=== PATIENT | female | born 1950 | race Caucasian/White ===

== ENCOUNTER 2020-08-03 11:50 | Emergency (ER) | payer BC, OTHER ==
[~2020-08-03 11:50] MED LIST: Iopamidol-370 76% 500 ML 1 ML ONE
[2020-08-03 12:24] LABS: #Basophils 0.1 thou/uL (0.0-0.2); #Eosinphils 0.2 thou/uL (0.0-0.7); #Lymphocytes 2.4 thou/uL (1.20-3.40); #Monocytes 0.6 thou/uL (0.11-0.59); #Neutrophils 4.8 thou/uL (1.40-6.50); %Basophils 1.5 % (0.0-1.0); %Lymphocytes 29.7 % (21.0-51.0); %Monocytes 6.7 % (0.0-10.0); Hemoglobin 13.6 g/dL (12.0-16.0); Mean Corpuscular HGB CONC 34.6 g/dL (32.0-36.0); Mean Corpuscular Hemoglobin 33.1 pg (27.0-31.0); Mean Corpuscular Volume 95.7 fL (78.0-98.0); Mean Platelet Volume 6.7 fL (7.4-10.4); Platelet Count 233 thou/uL (130-400); RBC Distribution Width 12.6 % (11.5-14.5); Red Blood Cell (RBC) Count 4.11 mill/uL (4.20-5.40); White Blood Cell (WBC) Count 8.2 thou/uL (4.8-10.8)
[2020-08-03 12:31] LABS: INR-International Normal Ratio 1.1; Prothrombin Time 14.2 sec (12.0-14.7)
[2020-08-03 12:32] LABS: PTT 35.3 sec (22.9-36.1)
[2020-08-03 12:33] LABS: D-Dimer Test 0.86 *mcg/mL (0.27-0.43)
--- NOTE | 2020-08-03 12:40 | RAD ---
RADIOGRAPH CHEST 1 VIEW: DATE: 08/03/2020 HISTORY: 70-year-old female with chest pain, dyspnea, and chills COMPARISON: None FINDINGS: There is a small faint patchy irregularly-shaped density at the right lower lung zone. This may repre sent summation shadowing artifact due to vascular structures overlapping with a right posterior rib. Alternatively, it could represent a small scar, subsegmental atelectasis, or acute infiltrate. T here are no large consolidations, pulmonary edema, pneumothorax, or cardiomegaly. The lateral costophrenic angles are sharp. IMPRESSION: Nonspecific small density at right lung base: Artifact versus early infiltrate. Artifact is favored. However, because of the patient's symptoms, short interval follow-up is recommended.
[2020-08-03 12:47] LABS: ALT (SGPT) 10 U/L (8-55); AST (SGOT) 12 U/L (5-34); Albumin 3.8 g/dL (3.4-4.8); Alkaline Phosphatase 50 U/L (40-110); Anion Gap 15 mmol/L (10-20); BUN (Urea Nitrogen) 16 mg/dL (9.8-20.1); Bilirubin, Total 0.3 mg/dL (0.2-1.2); Calc. Creatinine Clearance 0 mL/min (70-130); Carbon Dioxide 26 mmol/L (23-31); Chloride 103 mmol/L (98-107); Estimated GFR-MDRD 66; Globulin 2.5 g/dL (2.4-3.5); Glucose 161 mg/dL (80-115); Lipase 45 U/L (8-78); Potassium 4.6 mmol/L (3.5-5.1); Protein, Total 6.3 g/dL (6.0-8.3); Sodium 139 mmol/L (136-145)
--- NOTE | 2020-08-03 14:03 | CT ---
CT ANGIOGRAM THORAX WITH CONTRAST: (CTA pulmonary angiogram) DATE: 08/03/2020 HISTORY: 70-year-old female with dyspnea, chest pain, and chills TECHNIQUE: IV injection of iodinated contrast. Scan acquisition timing attempted to coincide with iodinated contrast bolus reaching maximal density in pulmonary arteries. 3-D MIP reconstructions. FINDINGS: Pulmonary thromboembolism: None. Lungs: Clear. Pneumothorax: None. Pleural effusion: None. Thoracic aorta: No aneurysm or dissection. Mediastinum: No lymphadenopathy or other mass. Loan: No lymphadenopathy or other mass. 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 Thoracic spine: Multilevel mild and moderate degenerative disc disease. No compression fracture. IMPRESSION: 1) no pulmonary thrombi embolism. 2) old, nonunited fracture of right sixth rib. 3) otherwise negative.
[2020-08-04 12:08] LABS: SARS-CoV-2 MS2 Positive; SARS-CoV-2 N Gene Negative; SARS-CoV-2 S Gene Positive; SARS-CoV-2 by NAA DETECTED (NotDetected); SARS-CoV-2 orf1ab Positive
== END 2020-08-03 14:35 | disposition home or self-care (01) ==
LOC: ERS 11:50
DX: U07.1 COVID-19 (principal); E11.9 Type 2 diabetes mellitus without complications; I10 Essential (primary) hypertension
CPT/HCPCS: 36415; 71045; 71275; 80053; 83690; 83880; 84484; 85025; 85379; 85610; 85730; 87635; Q9967; U0003